=== PATIENT | female | born 1970 | race African-American/Black ===

== ENCOUNTER 2017-11-06 22:59 | Observation (INO) | payer OTHER ==
[~2017-11-06] VITALS: Ht 167.6 cm; Wt 75.0 kg
[2017-11-06 23:07] VITALS: BP 213/112; PULSE 86; RESP 18; TEMP 98.5; O2SAT 92
[2017-11-06] MEDS ORDERED: SODIUM CHLORIDE 0.9% FLUSH 10 ML FLUSH IVF PRN (23:15)
[2017-11-06 23:41] VITALS: BP 189/119; PULSE 80; RESP 18; O2SAT 95
[2017-11-07] VITALS (19 sets, daily range): BP systolic 111–198; BP diastolic 73–125; PULSE 61–80; RESP 16–20; TEMP 97.9–98.9; O2SAT 93–99
[2017-11-07] MEDS ORDERED: hydrALAZINE HCL 20 MG/ML VIAL IV PUSH ONE
[2017-11-07] MEDS ORDERED: PROCHLORPERAZINE INJ 10 MG/2 ML VIAL IVP ONE
--- NOTE | 2017-11-07 00:10 | RADRPT ---
EXAM DATE: 11/07/2017 12:05 AM EDT AGE/SEX: 47 years / Female INDICATIONS: Hypertensive headache. CLINICAL DATA: This is the patient's initial encounter. Patient reports that signs and symptoms have been present for 1 day and indicates a pain score of 10/10. MEDICAL/SURGICAL HISTORY: Hypertension. Multiple sclerosis. Cholecystectomy. RADIATION DOSE: 66.34 CTDI (mGy) COMPARISON: No prior exams available for comparison. TECHNIQUE: CT of the head without contrast. Using automated exposure control and adjustment of the mA and/or kV according to patient size, radiation dose was kept as low as reasonably achievable to ob tain optimal diagnostic quality images. FINDINGS: Cerebrum: The ventricles are normal for age. No evidence of midline shift, mass lesion, hemorrhage or acute infarction. No extraaxial fluid collections are seen. Posterior Fossa: The cerebellum and brainstem are intact. The 4th ventricle is midline. The cerebe llopontine angle is unremarkable. Extracranial: The visualized portion of the orbits is intact. Skull: The calvaria is intact. No evidence of skull fracture. CONCLUSION: 1. Negative CT Head non contrast. Electronically signed by: Chris Lopez MD 11/07/2017 12:09 AM EDT
[2017-11-07] MEDS ORDERED: LABETALOL HCL 100 MG/20 ML VIAL IV PUSH ONE (00:15)
[2017-11-07 00:32] LABS: AUTOMATED NEUTROPHIL # 3.4 TH/MM3 (1.8-7.7); BASOPHIL # 0.1 TH/MM3 (0-0.2); EOSINOPHIL # 0.1 TH/MM3 (0-0.4); EOSINOPHIL % 1.5 % (0.0-4.0); HEMATOCRIT 48.1 % (35.0-46.0); HEMOGLOBIN 16.5 GM/DL (11.6-15.3); LYMPH % 44.3 % (9.0-44.0); LYMPHOCYTE # 3.2 TH/MM3 (1.0-4.8); MEAN CELL VOLUME 98.2 FL (80.0-100.0); MEAN CORPUSCULAR HEMOGLOBIN 33.7 PG (27.0-34.0); MEAN CORPUSCULAR HGB CONC 34.3 % (32.0-36.0); MONO % 6.8 % (0.0-8.0); MONOCYTE # 0.5 TH/MM3 (0-0.9); NEUT % 46.4 % (16.0-70.0); PLATELET COUNT 277 TH/MM3 (150-450); RED CELL DISTRIBUTION WIDTH 13.6 % (11.6-17.2); WHITE BLOOD COUNT 7.2 TH/MM3 (4.0-11.0)
[2017-11-07 00:43] LABS: PROTHROMBIN TIME - PATIENT 10.4 SEC (9.8-11.6)
[2017-11-07 00:47] LABS: D-DIMER 0.25 MG/L FEU (0.00-0.50)
[2017-11-07 00:50] LABS: ALBUMIN 3.5 GM/DL (3.4-5.0); ALT (GPT) 12 U/L (10-53); AST (GOT) 14 U/L (15-37); BICARBONATE 26.9 MEQ/L (21.0-32.0); BLOOD UREA NITROGEN 6 MG/DL (7-18); CALCIUM 9.1 MG/DL (8.5-10.1); CHLORIDE 105 MEQ/L (98-107); CREATININE 0.76 MG/DL (0.50-1.00); GLOMERULAR FILTRATION RATE 82 ML/MIN (>89); GLUCOSE,RANDOM 83 MG/DL (74-106); SODIUM (NA) 141 MEQ/L (136-145)
[2017-11-07 00:52] LABS: ALKALINE PHOSPHATASE 94 U/L (45-117); TOTAL BILIRUBIN ADULT 0.2 MG/DL (0.2-1.0); TOTAL PROTEIN 7.6 GM/DL (6.4-8.2); TROPONIN I LESS THAN 0.02 NG/ML (0.02-0.05)
--- NOTE | 2017-11-07 01:05 | RADRPT ---
EXAM DATE: 11/07/2017 12:58 AM EDT AGE/SEX: 47 years / Female INDICATIONS: Hypertensive episode with headache. CLINICAL DATA: This is the patient's initial encounter. Patient reports that signs and symptoms have been present for 1 day and indicates a pain score of 1/10. MEDICAL/SURGICAL HISTORY: Hypertension. Multiple sclerosis. Cholecystectomy. COMPARISON: No prior exams available for comparison. FINDINGS: A single AP view of the chest demonstrates the lungs to be symmetrically aerated without evidence of mass, infiltrate or effusion except for partial airspace disease in the right middle lobe. The cardi omediastinal contours are unremarkable. Osseous structures are intact. CONCLUSION: Negative examination except for questionable airspace disease in the right middle lobe. Electronically signed by: Chris Lopez MD 11/07/2017 1:04 AM EDT
[2017-11-07] MEDS ORDERED: ASPIRIN 325 MG TAB PO ONE (01:15)
--- NOTE | 2017-11-07 01:16 | PD ---
HPI Chief Complaint: Chest Pain Time Seen by Provider: 23:33 Travel History International Travel<30 days: No Contact w/Intl Traveler<30days: No Traveled to known affect area: No History of Present Illness HPI Patient is a 47-year-old female who presents the emergency room with multiple complaints. Patient reports that she has been having chest pain which has been ongoing for the past few days. Patient reports that she feels a "pressure" across her chest, reports that the chest pain does radiate down her left arm. Patient reports that nothing makes chest pain better or worse, she does have associated shortness of breath with chest pain. Reports that she always has shortness of breath. Reports that she has history of hypertension and is supposed to be taking lisinopril - she hasn't taken any of her meds in 4 months as she recently moved to this area from [place] and does not have a pcp. Patient also reports that since this morning, she has been having a frontal pressure to her head. Patient reports that she feels as if she is having a migraine headache as she has had migraines in the past. Reports history of similar headaches in the past. PFSH Past Medical History Arthritis: Yes Diminished Hearing: No Hypertension: Yes Medical other: Yes (Fibromyalgia, spinal bifida) Musculoskeletal: Yes (MS) Tetanus Vaccination: Unknown Influenza Vaccination: No ?: Not LMP: menapause Past Surgical History Cholecystectomy: Yes Eye Surgery: Yes (to remove glass ) Social History Alcohol Use: No Tobacco Use: Yes Substance Use: No Allergies-Medications (Allergen,Severity, Reaction): Coded Allergies: No Known Allergies (Unverified , 11/06/17) Reported Meds & Prescriptions Reported Meds & Active Scripts Active No Active Prescriptions or Reported Medications Review of Systems General / Constitutional: No: Fever Eyes: No: Visual changes HENT: Positive: Headaches, No: Neck Pain Cardiovascular: Positive: Chest Pain or Discomfort, No: Palpitations, Irregular Rhythm, Tachycardia Respiratory: Positive: Shortness of Breath Gastrointestinal: No: Abdominal Pain Genitourinary: No: Dysuria Musculoskeletal: No: Pain Skin: No Rash Neurologic: Positive: Headache, No: Weakness, Dizziness Psychiatric: No: Depression Endocrine: No: Polydipsia Hematologic/Lymphatic: No: Easy Bruising Physical Exam Narrative GENERAL: Moderate distress SKIN: Focused skin assessment warm/dry. HEAD: Atraumatic. Normocephalic. EYES: Pupils equal and round. No scleral icterus. No injection or drainage. ENT: No nasal bleeding or discharge. Mucous membranes pink and moist. NECK: Trachea midline. No JVD. CARDIOVASCULAR: Regular rate and rhythm. No murmur appreciated. RESPIRATORY: No accessory muscle use. Clear to auscultation. Breath sounds equal bilaterally. GASTROINTESTINAL: Abdomen soft, non-tender, nondistended. Hepatic and splenic margins not palpable. MUSCULOSKELETAL: No obvious deformities. No clubbing. No cyanosis. No edema. NEUROLOGICAL: Awake and alert. No obvious cranial nerve deficits. Motor grossly within normal limits. Normal speech. CN 2-12 grossly intact with no neurovascular deficits PSYCHIATRIC: Appropriate mood and affect; insight and judgment normal. Data Data Last Documented VS Vital Signs Date Time Temp Pulse Resp B/P (MAP) Pulse Ox O2 Delivery O2 Flow Rate FiO2 11/07/17 01:08 73 18 162/99 (120) 99 Nasal Cannula 2.00 11/06/17 23:07 98.5 Orders Orders Electrocardiogram (11/06/17 23:14) B-Type Natriuretic Peptide (11/06/17 23:14) Ckmb (Isoenzyme) Profile (11/06/17 23:14) Complete Blood Count With Diff (11/06/17 23:14) Comprehensive Metabolic Panel (11/06/17 23:14) Magnesium (Mg) (11/06/17 23:14) Prothrombin Time / Inr (Pt) (11/06/17 23:14) Act Partial Throm Time (Ptt) (11/06/17 23:14) Troponin I (11/06/17 23:14) Lipase (11/06/17 23:14) Ecg Monitoring (11/06/17 23:14) Iv Access Insert/Monitor (11/06/17 23:14) Oximetry (11/06/17 23:14) Sodium Chloride 0.9% Flush (Ns Flush) (11/06/17 23:15) Ct Brain W/O Iv Contrast(Rout) (11/06/17 23:48) Hydralazine Inj (Apresoline Inj) (11/07/17 00:00) Prochlorperazine Inj (Compazine Inj) (11/07/17 00:00) Labetalol Inj (Trandate Inj) (11/07/17 00:15) D-Dimer (11/06/17 23:14) Chest, Single Ap (11/07/17 ) Aspirin (Aspirin) (11/07/17 01:15) Lisinopril (Prinivil) (11/07/17 09:00) Labs Laboratory Tests Test 11/06/17 23:39 White Blood Count 7.2 TH/MM3 Red Blood Count 4.90 MIL/MM3 Hemoglobin 16.5 GM/DL Hematocrit 48.1 % Mean Corpuscular Volume 98.2 FL Mean Corpuscular Hemoglobin 33.7 PG Mean Corpuscular Hemoglobin Concent 34.3 % Red Cell Distribution Width 13.6 % Platelet Count 277 TH/MM3 Mean Platelet Volume 8.0 FL Neutrophils (%) (Auto) 46.4 % Lymphocytes (%) (Auto) 44.3 % Monocytes (%) (Auto) 6.8 % Eosinophils (%) (Auto) 1.5 % Basophils (%) (Auto) 1.0 % Neutrophils # (Auto) 3.4 TH/MM3 Lymphocytes # (Auto) 3.2 TH/MM3 Monocytes # (Auto) 0.5 TH/MM3 Eosinophils # (Auto) 0.1 TH/MM3 Basophils # (Auto) 0.1 TH/MM3 CBC Comment DIFF FINAL Differential Comment Prothrombin Time 10.4 SEC Prothromb Time International Ratio 1.0 RATIO Activated Partial Thromboplast Time 28.8 SEC D-Dimer Quantitative (PE/DVT) 0.25 MG/L FEU Blood Urea Nitrogen 6 MG/DL Creatinine 0.76 MG/DL Random Glucose 83 MG/DL Total Protein 7.6 GM/DL Albumin 3.5 GM/DL Calcium Level 9.1 MG/DL Magnesium Level 2.0 MG/DL Alkaline Phosphatase 94 U/L Aspartate Amino Transf (AST/SGOT) 14 U/L Alanine Aminotransferase (ALT/SGPT) 12 U/L Total Bilirubin 0.2 MG/DL Sodium Level 141 MEQ/L Potassium Level 3.6 MEQ/L Chloride Level 105 MEQ/L Carbon Dioxide Level 26.9 MEQ/L Anion Gap 9 MEQ/L Estimat Glomerular Filtration Rate 82 ML/MIN Total Creatine Kinase 58 U/L Troponin I LESS THAN 0.02 NG/ML B-Type Natriuretic Peptide 14 PG/ML Lipase 102 U/L MDM Medical Decision Making Medical Screen Exam Complete: Yes Emergency Medical Condition: Yes Medical Record Reviewed: Yes Interpretation(s) Vital Signs Date Time Temp Pulse Resp B/P (MAP) Pulse Ox O2 Delivery O2 Flow Rate FiO2 11/07/17 00:56 80 18 165/100 (121) 97 Nasal Cannula 2.00 11/07/17 00:22 78 20 183/125 (144) 99 Nasal Cannula 2.00 11/07/17 00:15 75 20 198/121 (146) 99 Nasal Cannula 2.00 11/06/17 23:41 80 18 189/119 (142) 95 Nasal Cannula 2.00 11/06/17 23:07 98.5 86 18 213/112 (145) 92 Differential Diagnosis ACS, arrhythmia, PE, pneumothorax, migraine, hypertensive urgency, hypertensive emergency Narrative Course During the course of the patients emergency department visit, the patients history, examination, and differential diagnosis were reviewed with the patient. The patient was placed on a monitoring coordinator with oximetry and frequent blood pressure monitoring. The patient had an IV access obtained and blood work sent for analysis. The patient was initially provided IV labelolol as initial bp was 213/112. BP after labetolol was 162/99 The patients laboratory studies were reviewed and remarkable for CBC & BMP Diagram 11/06/17 23:39 Total Protein 7.6, Albumin 3.5, Calcium Level 9.1, Magnesium Level 2.0, Alkaline Phosphatase 94, Aspartate Amino Transf (AST/SGOT) 14 L, Alanine Aminotransferase (ALT/SGPT) 12, Total Bilirubin 0.2 trop 0.02, d.dimer 0.25 Radiology studies were reviewed and remarkable for Last Impressions Chest X-Ray 11/07/17 0000 Impressions: CONCLUSION: Negative examination except for questionable airspace disease in the right midd le lobe. Head CT 11/06/17 3658 Signed Impressions: CONCLUSION: 1. Negative CT Head non contrast. Patient feeling much better at this time. Patient will require admission to the hospital for hypertensive urgency as well as for chest pain observation. Case reviewed with Dr. Knapp, request that patient be restarted on her lisinopril 40 mg, request the patient be admitted to the chest pain unit as her blood pressure is controlled at this time. Diagnosis Primary Impression: Hypertensive urgency Additional Impression: Chest pain Admitting Information Admitting Physician Requests: Observation Scripts No Active Prescriptions or Reported Meds Johanny Flores DO Nov 07, 2017 01:16
[2017-11-07] MEDS ORDERED: IOHEXOL 350 MG/ML 50 ML BTL (for Cath Lab) OTHER ONE (01:37)
[2017-11-07] MEDS ORDERED: LISINOPRIL 20 MG TAB PO SCH ×2 (02:00→09:00)
[2017-11-07 03:43] LABS: TROPONIN I LESS THAN 0.02 NG/ML (0.02-0.05)
[2017-11-07 05:35] LABS: TROPONIN I LESS THAN 0.02 NG/ML (0.02-0.05)
[2017-11-07] MEDS ORDERED: RESP: ALBUTEROL 2.5 MG/IPRATROPIUM 0.5 MG NEB (SCH) INH ONE (08:45)
[2017-11-07] MEDS ORDERED: cloNIDine HCL 0.1 MG TAB PO PRN (08:45)
[2017-11-07] MEDS ORDERED: RESP: ALBUTEROL 2.5 MG/IPRATROPIUM 0.5 MG NEB (PRN) INH (08:45)
--- NOTE | 2017-11-07 08:50 | HHI.HP ---
HPI Primary Care Physician Unknown Chief Complaint Chest pain and shortness of breath History of Present Illness This is a 47-year-old female with history of hypertension, tobacco abuse, MS, fibromyalgia, and spina bifida that presents to ED with complaint of shortness of breath and chest discomfort this been constantly present for 2 days. First began waking her from her sleep. Initially was a discomfort described as something sitting on her and then turned to a squeezing discomfort. Really found nothing to worsen the discomfort. States she felt better after being given medication in the ED for blood pressure. Patient states that she has been prescribed lisinopril for years but ran out of medicine 4 months ago about the same time that she moved to this area from [place] has not found a local PCP. States the only other medication that she should be taking his pain medication that she takes for her MS and fibromyalgia. Currently denies chest discomfort. States her breathing is also improved. Review of Systems General: Patient denies fevers, chills, and recent travel. HEENT: Patient denies headache, sore throat, difficulty swallowing. Cardiovascular: Has the chest discomfort as mentioned above. Denies sensation of heart beating rapidly or irregularly. No syncope. Denies diaphoresis. Respiratory: She was short of breath. Denies inspirational chest discomfort. Denies coughing wheezing or hemoptysis. GI: Patient denies nausea, vomiting, diarrhea, abdominal pain, bloody stools. Musculoskeletal: Patient denies joint pain or edema. Denies calf pain or edema. Neurovascular: Patient denies numbness, tingling, weakness in extremities. Denies headache. Endocrine: Denies polyuria and polydipsia. Hematologic: Denies easy bruising. Skin: Denies rash or itching. Past Family Social History Allergies: Coded Allergies: No Known Allergies (Unverified , 11/06/17) Past Medical History Hypertension. States she also has history of MS, spina bifida, and fibromyalgia. Denies hyperlipidemia, diabetes, and known CAD. History of tobacco abuse. Past Surgical History Cholecystectomy Reported Medications Reported Meds & Active Scripts Active No Active Prescriptions or Reported Medications Active Ordered Medications Current Medications Medications (Trade) Dose Ordered Sig/Rosamaria Route Start Time Stop Time Status Last Admin (NS Flush) 2 ml UNSCH PRN IVF 11/06/17 23:15 (Prinivil) 40 mg DAILY PO 11/07/17 09:00 11/07/17 08:01 (Prinivil) 40 mg ONCE PO 11/07/17 02:00 (Duoneb Neb) 1 ampule Q4HR NEB PRN INH 11/07/17 08:45 (Duoneb Neb) 1 ampule STAT ONCE INH 11/07/17 08:45 11/07/17 08:46 (Catapres) 0.1 mg Q4H PRN PO 11/07/17 08:45 Family History States that her mother had an ME in her 40s and her sister has a pacemaker. Social History Smokes one half pack of cigarettes daily for 40 years. Denies alcohol. Smokes marijuana. She is . Physical Exam Vital Signs Vital Signs Date Time Temp Pulse Resp B/P (MAP) Pulse Ox O2 Delivery O2 Flow Rate FiO2 11/07/17 08:13 98.9 72 18 175/110 (131) 95 11/07/17 03:16 68 11/07/17 02:32 97.9 66 16 158/99 (118) 95 11/07/17 02:20 11/07/17 01:56 79 20 158/93 (114) 99 Nasal Cannula 2.00 11/07/17 01:08 73 18 162/99 (120) 99 Nasal Cannula 2.00 11/07/17 00:56 80 18 165/100 (121) 97 Nasal Cannula 2.00 11/07/17 00:22 78 20 183/125 (144) 99 Nasal Cannula 2.00 11/07/17 00:15 75 20 198/121 (146) 99 Nasal Cannula 2.00 11/06/17 23:41 80 18 189/119 (142) 95 Nasal Cannula 2.00 11/06/17 23:07 98.5 86 18 213/112 (145) 92 Physical Exam GENERAL: This is a well-nourished, well-developed patient, in no apparent distress. Patient speaks in clear complete sentences. Patient is pleasant. HEENT: Head is atraumatic and normocephalic. Neck is supple without lymphadenopathy and trachea is midline. No JVD or carotid bruits. CARDIOVASCULAR: Regular rate and rhythm without murmurs, gallops, or rubs. RESPIRATORY: Clear to auscultation. Breath sounds equal bilaterally. No wheezes , rales, or rhonchi. Chest wall is tender. No use of accessory muscles. GASTROINTESTINAL: Abdomen is nontender, nondistended. Abdomen soft. No obvious pulsatile mass or bruit. No CVA tenderness. Strong femoral pulses bilaterally. Normal bowel sounds in all quadrants. MUSCULOSKELETAL: Patient is moving upper and lower extremities freely. No calf tenderness or edema, no Homans sign. Strong pulses in upper and lower extremities. NEUROLOGICAL: Patient is alert and oriented. Cranial nerves 2-12 are grossly intact. No focal deficits and speech is clear. SKIN: No rash and turgor is normal. Laboratory Laboratory Tests Test 11/06/17 23:39 11/07/17 02:50 11/07/17 05:00 White Blood Count 7.2 Red Blood Count 4.90 Hemoglobin 16.5 Hematocrit 48.1 Mean Corpuscular Volume 98.2 Mean Corpuscular Hemoglobin 33.7 Mean Corpuscular Hemoglobin Concent 34.3 Red Cell Distribution Width 13.6 Platelet Count 277 Mean Platelet Volume 8.0 Neutrophils (%) (Auto) 46.4 Lymphocytes (%) (Auto) 44.3 Monocytes (%) (Auto) 6.8 Eosinophils (%) (Auto) 1.5 Basophils (%) (Auto) 1.0 Neutrophils # (Auto) 3.4 Lymphocytes # (Auto) 3.2 Monocytes # (Auto) 0.5 Eosinophils # (Auto) 0.1 Basophils # (Auto) 0.1 CBC Comment DIFF FINAL Differential Comment Prothrombin Time 10.4 Prothromb Time International Ratio 1.0 Activated Partial Thromboplast Time 28.8 D-Dimer Quantitative (PE/DVT) 0.25 Blood Urea Nitrogen 6 Creatinine 0.76 Random Glucose 83 Total Protein 7.6 Albumin 3.5 Calcium Level 9.1 Magnesium Level 2.0 Alkaline Phosphatase 94 Aspartate Amino Transf (AST/SGOT) 14 Alanine Aminotransferase (ALT/SGPT) 12 Total Bilirubin 0.2 Sodium Level 141 Potassium Level 3.6 Chloride Level 105 Carbon Dioxide Level 26.9 Anion Gap 9 Estimat Glomerular Filtration Rate 82 Total Creatine Kinase 58 62 74 Troponin I LESS THAN 0.02 LESS THAN 0.02 LESS THAN 0.02 B-Type Natriuretic Peptide 14 Lipase 102 Result Diagram: 11/06/17 2339 11/06/17 2339 Imaging Last 48 hours Impressions Chest X-Ray 11/07/17 0000 Signed Impressions: CONCLUSION: Negative examination except for questionable airspace disease in the right midd le lobe. Head CT 11/06/17 8524 Signed Impressions: CONCLUSION: 1. Negative CT Head non contrast. Course EKGs are sinus rhythm without significant ST segment depressions or elevations. Caprini VTE Risk Assessment Caprini VTE Risk Assessment: No/Low Risk (score <= 1) Caprini Risk Assessment Model Point Value = 1 Point Value = 2 Point Value = 3 Point Value = 5 Age 41-60 Minor surgery BMI > 25 kg/m2 Swollen legs Varicose veins or History of unexplained or recurrent spontaneous Oral contraceptives or hormone replacement Sepsis (< 1 month) Serious lung disease, including pneumonia (< 1 month) Abnormal pulmonary function Acute myocardial infarction Congestive heart failure (< 1 month) History of inflammatory bowel disease Medical patient at bed rest Age 61-74 Arthroscopic surgery Major open surgery (> 45 min) Laparoscopic surgery (> 45 min) Malignancy Confined to bed (> 72 hours) Immobilizing plaster cast Central venous access Age >= 75 History of VTE Family history of VTE Factor V Leiden Prothrombin [id number] Lupus anticoagulant Anticardiolipin antibodies Elevated serum homocysteine Heparin-induced thrombocytopenia Other congenital or acquired thrombophilia Stroke (< 1 month) Elective arthroplasty Hip, pelvis, or leg fracture Acute spinal cord injury (< 1 month) Prophylaxis Regimen Total Risk Factor Score Risk Level Prophylaxis Regimen 0-1 Low Early ambulation 2 Moderate Order ONE of the following: *Sequential Compression Device (SCD) *Heparin 5000 units SQ BID 3-4 Higher Order ONE of the following medications: *Heparin 5000 units SQ TID *Enoxaparin/Lovenox 40 mg SQ daily (WT < 150 kg, CrCl > 30 mL/min) *Enoxaparin/Lovenox 30 mg SQ daily (WT < 150 kg, CrCl > 10-29 mL/min) *Enoxaparin/Lovenox 30 mg SQ BID (WT < 150 kg, CrCl > 30 mL/min) AND/OR *Sequential Compression Device (SCD) 5 or more Highest Order ONE of the following medications: *Heparin 5000 units SQ TID (Preferred with Epidurals) *Enoxaparin/Lovenox 40 mg SQ daily (WT < 150 kg, CrCl > 30 mL/min) *Enoxaparin/Lovenox 30 mg SQ daily (WT < 150 kg, CrCl > 10-29 mL/min) *Enoxaparin/Lovenox 30 mg SQ BID (WT < 150 kg, CrCl > 30 mL/min) AND *Sequential Compression Device (SCD) Assessment and Plan Assessment and Plan * Chest pain: Symptoms are atypical as she has had them for 2 days constant and reproducible when palpating the chest wall. However she does have risk factors for heart disease. She will be seen by Dr. Leigh of cardiology in the chest pain center. She will undergo a Lexiscan. She will be discharged home if her stress test is nonischemic with instructions to follow-up with PCP. * Hypertension: Patient states she is out of her lisinopril which she was taking 40 mg daily. This will be restarted. * Tobacco abuse: Patient counseled on importance of smoking cessation. Patient is stable at this time. She is agreeable to this plan. Qasim Shaikh Nov 07, 2017 08:50
[2017-11-07] MEDS ORDERED: REGADENOSON INJ 0.4 MG/5 ML SYR ONE (10:32)
--- NOTE | 2017-11-07 12:03 | PD.CARD.PN ---
Subjective Subjective Remarks 47-year-old lady who reports a complex medical history dating back to her youth but presenting today due to chest pain which was described as a squeezing pain in her left chest area and is squeezing of her heart that seemed to radiate into her left arm. Initially this was severe and has been protracted but is down now to 1 out of 10. She also reports shortness of breath but this is not an unusual occurrence her history however is pertinent apparently she has been diagnosed with spina bifida multiple sclerosis fibromyalgia diffuse degenerative joint disease and hypertension. She has sought medical care in several different states including [place], [place], in [place]. She has been under treatment for hypertension but apparently this has not been well controlled. She and her recently moved from [place] and she has not reestablished with a physician. As result she has been off her medication and her blood pressures been significantly increased. Patient was discussed with the physician human relations professor and will be evaluated using chest pain center protocol including a nuclear scan. She obviously has additional significant problems but these will require outpatient long-term follow-up with a primary care physician and possible neurology. She is insured to her 's insurance and indicates that she will attempt to establish with a physician. Objective Medications Current Medications Medications (Trade) Dose Ordered Sig/Rosamaria Route Start Time Stop Time Status Last Admin (NS Flush) 2 ml UNSCH PRN IVF 11/06/17 23:15 (Prinivil) 40 mg DAILY PO 11/07/17 09:00 11/07/17 08:01 (Prinivil) 40 mg ONCE PO 11/07/17 02:00 (Duoneb Neb) 1 ampule Q4HR NEB PRN INH 11/07/17 08:45 (Catapres) 0.1 mg Q4H PRN PO 11/07/17 08:45 Vital Signs / I&O Vital Signs Date Time Temp Pulse Resp B/P (MAP) Pulse Ox O2 Delivery O2 Flow Rate FiO2 11/07/17 09:58 65 18 159/109 (126) 93 11/07/17 09:16 74 11/07/17 08:56 96 Nasal Cannula 2.00 11/07/17 08:13 98.9 72 18 175/110 (131) 95 11/07/17 03:16 68 11/07/17 02:32 97.9 66 16 158/99 (118) 95 11/07/17 02:20 11/07/17 01:56 79 20 158/93 (114) 99 Nasal Cannula 2.00 11/07/17 01:08 73 18 162/99 (120) 99 Nasal Cannula 2.00 11/07/17 00:56 80 18 165/100 (121) 97 Nasal Cannula 2.00 11/07/17 00:22 78 20 183/125 (144) 99 Nasal Cannula 2.00 11/07/17 00:15 75 20 198/121 (146) 99 Nasal Cannula 2.00 11/06/17 23:41 80 18 189/119 (142) 95 Nasal Cannula 2.00 11/06/17 23:07 98.5 86 18 213/112 (145) 92 Physical Exam Patient is sitting in the bed and demonstrates a diffuse fine tremor. Head multi colored braid in hair but otherwise unremarkable Eyes are very sensitive to light. PERRLA EOMI Mouth mucous membranes moist and well papillated no lesions Neck supple no JVD masses nodes or bruits Chest diminished breath sounds but no rales wheezes or rhonchi Cardiovascular regular rhythm with no gallop rub or murmur Extremities reveal the left lower extremity to be somewhat atrophic compared to the right. There is no clubbing cyanosis or edema Neurologic is deferred due to her reported complex problems of multiple sclerosis fibromyalgia atrophy Laboratory Laboratory Tests Test 11/06/17 23:39 11/07/17 02:50 11/07/17 05:00 White Blood Count 7.2 TH/MM3 Red Blood Count 4.90 MIL/MM3 Hemoglobin 16.5 GM/DL Hematocrit 48.1 % Mean Corpuscular Volume 98.2 FL Mean Corpuscular Hemoglobin 33.7 PG Mean Corpuscular Hemoglobin Concent 34.3 % Red Cell Distribution Width 13.6 % Platelet Count 277 TH/MM3 Mean Platelet Volume 8.0 FL Neutrophils (%) (Auto) 46.4 % Lymphocytes (%) (Auto) 44.3 % Monocytes (%) (Auto) 6.8 % Eosinophils (%) (Auto) 1.5 % Basophils (%) (Auto) 1.0 % Neutrophils # (Auto) 3.4 TH/MM3 Lymphocytes # (Auto) 3.2 TH/MM3 Monocytes # (Auto) 0.5 TH/MM3 Eosinophils # (Auto) 0.1 TH/MM3 Basophils # (Auto) 0.1 TH/MM3 CBC Comment DIFF FINAL Differential Comment Prothrombin Time 10.4 SEC Prothromb Time International Ratio 1.0 RATIO Activated Partial Thromboplast Time 28.8 SEC D-Dimer Quantitative (PE/DVT) 0.25 MG/L FEU Blood Urea Nitrogen 6 MG/DL Creatinine 0.76 MG/DL Random Glucose 83 MG/DL Total Protein 7.6 GM/DL Albumin 3.5 GM/DL Calcium Level 9.1 MG/DL Magnesium Level 2.0 MG/DL Alkaline Phosphatase 94 U/L Aspartate Amino Transf (AST/SGOT) 14 U/L Alanine Aminotransferase (ALT/SGPT) 12 U/L Total Bilirubin 0.2 MG/DL Sodium Level 141 MEQ/L Potassium Level 3.6 MEQ/L Chloride Level 105 MEQ/L Carbon Dioxide Level 26.9 MEQ/L Anion Gap 9 MEQ/L Estimat Glomerular Filtration Rate 82 ML/MIN Total Creatine Kinase 58 U/L 62 U/L 74 U/L Troponin I LESS THAN 0.02 NG/ML LESS THAN 0.02 NG/ML LESS THAN 0.02 NG/ML B-Type Natriuretic Peptide 14 PG/ML Lipase 102 U/L Imaging Last 24 hours Impressions Chest X-Ray 11/07/17 0000 Signed Impressions: CONCLUSION: Negative examination except for questionable airspace disease in the right midd le lobe. Head CT 11/06/17 2348 Signed Impressions: CONCLUSION: 1. Negative CT Head non contrast. Assessment and Plan Assessment and Plan The patient was discussed and immediate issues of chest pain will be evaluated with a full protocol. If she is negative as anticipated she will be discharged with refills on her hypertensive medications to establish follow-up with primary care physician and a neurologist in this area. Discussed Condition With Discussed with patient Karl Leigh MD Nov 07, 2017 12:03
--- NOTE | 2017-11-07 12:25 | RADRPT ---
EXAM DATE: 11/07/2017 11:46 AM EDT AGE/SEX: 47 years / Female INDICATIONS:Angina. . Mid chest pain with shortness of breath for two days. CLINICAL DATA: This is the patient's initial encounter. Patient reports that signs and symptoms have been present for 2 days and indicates a pain score of 4/10. MEDICAL/SURGICAL HISTORY: Multiple sclerosis. Hypertension. Cholecystectomy. COMPARISON: No prior exams available for comparison. No external comparison. DOSE: 8.7 mCi Tc 99m Myoview at rest 25.5 mCi [id number] at stress 0.4 mg Lexiscan STRESS SYMPTOMS: Chest pain with shortness of breath. EJECTION FRACTION: 66 % TECHNIQUE: The patient underwent pharmacologic stress with infusion of prescribed dose. Continuous ECG tracing was monitored during stress. Gated SPECT imaging was performed after stress and conventi onal SPECT imaging was performed at rest. The examination was performed on a SPECT/CT scanner, both attenuation and non-corrected datasets were reviewed. FINDINGS: Distribution: The maximum perfused segment at stress is in the septal wall. Perfusion Study: The pattern of perfusion at stress demonstrates a small reversible defect in the i nferolateral wall. Gated Study: There are intact wall motion and wall thickening without hypokinetic or dyskinetic segm ents. The ejection fraction is calculated at 66%. RISK CATEGORY: Intermediate (1-3 % Annual Mortality Rate) CONCLUSION: 1. There is a small area of reversibility in the inferolateral wall of the left ventricle. This coul d represent a focal area of ischemia. Normal wall motion. Electronically signed by: Jimmie Law MD 11/07/2017 12:24 PM EDT
[2017-11-07] MEDS: METOPROLOL TARTRATE 25 MG TAB PO SCH ×2 (13:05→22:17)
[2017-11-07] MEDS: amLODIPine BESYLATE 5 MG TAB PO SCH (13:06)
--- NOTE | 2017-11-07 13:07 | TR ---
Date Performed: 11/07/2017 Time Performed: 10:47:27 DOCTOR: Karl Leigh DRUG LIST: CLINICAL HISTORY: ANGINA REASON FOR TEST: Angina REASON FOR ENDING: OBSERVATION: CONCLUSION: Lexiscan stress test was performed under standard four minute protocol. Radionuclide was injected one minute prior to ending the test. No electrocardiographic abormalities were present to suggest ischemia. Nuclear imaging and interpretation are pending. COMMENTS:
--- NOTE | 2017-11-07 13:09 | EKG ---
Date Performed: 11/07/2017 Time Performed: 04:42:15 PTAGE: 47 years EKG: Sinus rhythm LEFT ATRIAL ENLARGEMENT POSSIBLE RIGHT VENTRICULAR CONDUCTION DELAY SEPTAL MYOCARDIAL INFARCTION ABN ORMAL ECG No change PREVIOUS TRACING : 11/07/2017 02.41 DOCTOR: Karl Leigh Interpretating Date/Time 11/07/2017 13:07:54
--- NOTE | 2017-11-07 13:10 | EKG ---
Date Performed: 11/07/2017 Time Performed: 02:41:53 PTAGE: 47 years EKG: Sinus rhythm INCOMPLETE RIGHT BUNDLE BRANCH BLOCK BORDERLINE ECG No significant change PREVIOUS TRACING : 11/06/2017 22.34 DOCTOR: Karl eLigh Interpretating Date/Time 11/07/2017 13:08:18
--- NOTE | 2017-11-07 13:11 | EKG ---
Date Performed: 11/06/2017 Time Performed: 22:34:16 PTAGE: 47 years EKG: Sinus rhythm LEFT ATRIAL ENLARGEMENT POSSIBLE RIGHT VENTRICULAR CONDUCTION DELAY ABNORMAL ECG NO PREVIOUS TRACING DOCTOR: Karl Leigh Interpretating Date/Time 11/07/2017 13:09:06
[2017-11-07] MEDS ORDERED: NITROGLYCERIN 2% OINT 1 GM PACKET TOPICAL SCH (14:00)
[2017-11-07] MEDS: NITROGLYCERIN 2% OINT 1 GM PACKET TOPICAL SCH (18:00)
[2017-11-08 04:00] VITALS: BP 127/75; PULSE 57; RESP 18; TEMP 98.7; O2SAT 93
[2017-11-08] MEDS: NITROGLYCERIN 2% OINT 1 GM PACKET TOPICAL SCH ×2 (06:00)
[2017-11-08 07:24] VITALS: O2SAT 94
--- NOTE | 2017-11-08 07:40 | PD.CONS ---
HPI Consult Requested By Primary Care Physician Unknown History of Present Illness 47-year-old female with past medical history of HTN, tobacco use, MS, MVP who presented for chest pain. The patient states that she began having heavy squeezing chest discomfort, went to sleep, was worse whenever she woke up so she came to the ED. She states this is the third episode like this that she has had this year. She states the first episode occurred whenever she was exerting herself raking the yard. She has associated shortness of breath. She reports her mom had a stroke at 37 and NE at age 41. She states her sister just recently had a large heart attack and heart catheterization so she is familiar with that. She does smoke. She was admitted to the chest pain center and was ruled out for ACS per protocol with unremarkable serial cardiac enzymes and EKGs. Nuclear stress test done which showed small area reversibility inferior lateral wall of the left ventricle, possibly representing a focal area of ischemia. (Bradley Martínez) Review of Systems Negative except as stated in the HPI (Bradley Martínez) Past Family Social History Allergies: Coded Allergies: No Known Allergies (Unverified , 11/06/17) Past Medical History Hypertension. States she also has history of MS, spina bifida, and fibromyalgia. Past Surgical History Cholecystectomy Reported Medications Reported Meds & Active Scripts Active No Active Prescriptions or Reported Medications Active Ordered Medications Current Medications Medications (Trade) Dose Ordered Sig/Rosamaria Route Start Time Stop Time Status Last Admin (NS Flush) 2 ml UNSCH PRN IVF 11/06/17 23:15 (Prinivil) 40 mg ONCE PO 11/07/17 02:00 (Duoneb Neb) 1 ampule Q4HR NEB PRN INH 11/07/17 08:45 (Catapres) 0.1 mg Q4H PRN PO 11/07/17 08:45 11/07/17 14:27 (Lopressor) 25 mg Q12HR PO 11/07/17 12:45 11/07/17 22:17 (Norvasc) 5 mg DAILY PO 11/07/17 12:45 11/07/17 13:06 (Aspirin) 325 mg DAILY PO 11/08/17 09:00 (Nitroglycerin 2% Oint) 1 inch Q6HR TOPICAL 11/07/17 18:00 (Catapres) 0.1 mg Q6H PRN PO 11/07/17 13:45 Family History Mother NE age 41, CVA age 37. Sister with NE. Social History Smokes one half pack of cigarettes daily for 40 years. Denies alcohol. MJ use. (Bradley Martínez) Physical Exam Vital Signs Vital Signs Date Time Temp Pulse Resp B/P (MAP) Pulse Ox O2 Delivery O2 Flow Rate FiO2 11/08/17 07:24 94 21 11/08/17 04:00 98.7 57 18 127/75 (92) 93 11/07/17 23:35 98.3 73 17 111/73 (86) 94 11/07/17 23:00 72 11/07/17 20:08 96 11/07/17 19:37 98.6 74 17 158/85 (109) 93 11/07/17 15:56 63 11/07/17 15:45 98.1 66 18 135/104 (114) 95 11/07/17 13:53 61 18 186/115 (138) 96 11/07/17 12:14 98.9 70 18 174/108 (130) 93 11/07/17 09:58 65 18 159/109 (126) 93 11/07/17 09:16 74 11/07/17 08:56 96 Nasal Cannula 2.00 11/07/17 08:13 98.9 72 18 175/110 (131) 95 Physical Exam GENERAL: Well-developed well-nourished. In no acute distress. NECK: No carotid bruits. No JVD. CARDIOVASCULAR: Regular rate and rhythm. No murmur appreciated. RESPIRATORY: No accessory muscle use. Clear to auscultation. Breath sounds equal bilaterally. MUSCULOSKELETAL: No clubbing or cyanosis. No edema. NEUROLOGICAL: Awake and alert. Normal speech. Laboratory Laboratory Tests Test 11/08/17 06:01 (Bradley Martínez) Result Diagram: 11/06/17 2339 11/06/17 2339 Imaging Last Impressions Myocardial Perfusion Scan Nuc Med 11/07/17 0000 Signed Impressions: CONCLUSION: 1. There is a small area of reversibility in the inferolateral wall of the lef t ventricle. This could represent a focal area of ischemia. Normal wall motion. Chest X-Ray 11/07/17 0000 Signed Impressions: CONCLUSION: Negative examination except for questionable airspace disease in the right midd le lobe. Head CT 11/06/17 6190 Signed Impressions: CONCLUSION: 1. Negative CT Head non contrast. (Bradley Martínez) Assessment and Plan Assessment and Plan 47-year-old female with past medical history of HTN, tobacco use, MS, MVP who presented for chest pain. The patient states that she began having heavy squeezing chest discomfort, went to sleep, was worse whenever she woke up so she came to the ED. She states this is the third episode like this that she has had this year. She states the first episode occurred whenever she was exerting herself raking the yard. She has associated shortness of breath. She reports her mom had a stroke at 37 and NE at age 41. She states her sister just recently had a large heart attack and heart catheterization so she is familiar with that. She does smoke. She was admitted to the chest pain center and was ruled out for ACS per protocol with unremarkable serial cardiac enzymes and EKGs. Nuclear stress test done which showed small area reversibility inferior lateral wall of the left ventricle, possibly representing a focal area of ischemia. Chest pain: Suggestive symptoms with risk factors including strong family history, uncontrolled hypertension, tobacco use; now with mildly positive nuclear stress test. We will plan for cardiac catheterization today, all questions answered, keep n.p.o. for now. Discussed Condition With Patient, Dr. Gongora (Bradley Martínez) Assessment and Plan Plan for [facility] NPO (Chris Gongora MD) Bradley Martínez Nov 08, 2017 07:40 Chris Gongora MD Nov 08, 2017 10:26
[2017-11-08 07:46] VITALS: BP 169/107; PULSE 75; RESP 16; TEMP 97.8; O2SAT 93
[2017-11-08 08:00] VITALS: PULSE 60
[2017-11-08 08:05] LABS: CHOLESTEROL/ HDL RATIO 4.72 RATIO; HDL CHOLESTEROL 36.6 MG/DL (40.0-60.0)
[2017-11-08] MEDS: METOPROLOL TARTRATE 25 MG TAB PO SCH (08:06)
[2017-11-08] MEDS: amLODIPine BESYLATE 5 MG TAB PO SCH (08:06)
[2017-11-08] MEDS: RESP: ALBUTEROL 2.5 MG/IPRATROPIUM 0.5 MG NEB (SCH) NEB ×2 (08:46→11:33)
--- NOTE | 2017-11-08 08:48 | HHI.PR ---
Subjective Remarks Patient reports feeling much better than when she came in continues to have cough which has been present for approximately 4 -5 months and shortness of breath which appears to be chronic Objective Vitals Vital Signs Date Time Temp Pulse Resp B/P (MAP) Pulse Ox O2 Delivery O2 Flow Rate FiO2 11/08/17 07:46 97.8 75 16 169/107 (127) 93 11/08/17 07:24 94 21 11/08/17 04:00 98.7 57 18 127/75 (92) 93 11/07/17 23:35 98.3 73 17 111/73 (86) 94 11/07/17 23:00 72 11/07/17 20:08 96 11/07/17 19:37 98.6 74 17 158/85 (109) 93 11/07/17 15:56 63 11/07/17 15:45 98.1 66 18 135/104 (114) 95 11/07/17 13:53 61 18 186/115 (138) 96 11/07/17 12:14 98.9 70 18 174/108 (130) 93 11/07/17 09:58 65 18 159/109 (126) 93 11/07/17 09:16 74 11/07/17 08:56 96 Nasal Cannula 2.00 Result Diagram: 11/06/17 2339 11/06/17 2339 Other Results Laboratory Tests Test 11/06/17 23:39 11/07/17 02:50 11/07/17 05:00 11/08/17 06:01 White Blood Count 7.2 TH/MM3 Red Blood Count 4.90 MIL/MM3 Hemoglobin 16.5 GM/DL Hematocrit 48.1 % Mean Corpuscular Volume 98.2 FL Mean Corpuscular Hemoglobin 33.7 PG Mean Corpuscular Hemoglobin Concent 34.3 % Red Cell Distribution Width 13.6 % Platelet Count 277 TH/MM3 Mean Platelet Volume 8.0 FL Neutrophils (%) (Auto) 46.4 % Lymphocytes (%) (Auto) 44.3 % Monocytes (%) (Auto) 6.8 % Eosinophils (%) (Auto) 1.5 % Basophils (%) (Auto) 1.0 % Neutrophils # (Auto) 3.4 TH/MM3 Lymphocytes # (Auto) 3.2 TH/MM3 Monocytes # (Auto) 0.5 TH/MM3 Eosinophils # (Auto) 0.1 TH/MM3 Basophils # (Auto) 0.1 TH/MM3 CBC Comment DIFF FINAL Differential Comment Prothrombin Time 10.4 SEC Prothromb Time International Ratio 1.0 RATIO Activated Partial Thromboplast Time 28.8 SEC D-Dimer Quantitative (PE/DVT) 0.25 MG/L FEU Blood Urea Nitrogen 6 MG/DL Creatinine 0.76 MG/DL Random Glucose 83 MG/DL Total Protein 7.6 GM/DL Albumin 3.5 GM/DL Calcium Level 9.1 MG/DL Magnesium Level 2.0 MG/DL Alkaline Phosphatase 94 U/L Aspartate Amino Transf (AST/SGOT) 14 U/L Alanine Aminotransferase (ALT/SGPT) 12 U/L Total Bilirubin 0.2 MG/DL Sodium Level 141 MEQ/L Potassium Level 3.6 MEQ/L Chloride Level 105 MEQ/L Carbon Dioxide Level 26.9 MEQ/L Anion Gap 9 MEQ/L Estimat Glomerular Filtration Rate 82 ML/MIN Total Creatine Kinase 58 U/L 62 U/L 74 U/L Troponin I LESS THAN 0.02 NG/ML LESS THAN 0.02 NG/ML LESS THAN 0.02 NG/ML B-Type Natriuretic Peptide 14 PG/ML Lipase 102 U/L Triglycerides Level 115 MG/DL Cholesterol Level 173 MG/DL LDL Cholesterol 113 MG/DL HDL Cholesterol 36.6 MG/DL Cholesterol/HDL Ratio 4.72 RATIO Imaging Last Impressions Myocardial Perfusion Scan Nuc Med 11/07/17 0000 Signed Impressions: CONCLUSION: 1. There is a small area of reversibility in the inferolateral wall of the lef t ventricle. This could represent a focal area of ischemia. Normal wall motion. Chest X-Ray 11/07/17 Signed Impressions: CONCLUSION: Negative examination except for questionable airspace disease in the right midd le lobe. Head CT 11/06/17 2348 Signed Impressions: CONCLUSION: 1. Negative CT Head non contrast. Objective Remarks GENERAL: This is a well-nourished, well-developed patient, in no apparent distress. CARDIOVASCULAR: Regular rate and rhythm RESPIRATORY: coarse through out GASTROINTESTINAL: Abdomen soft, non-tender, nondistended. Normal active bowel sounds MUSCULOSKELETAL: Extremities without clubbing, cyanosis, or edema. NEURO: Alert & Oriented x4 to person, place, time, situation. Moves all ext x4 A/P Problem List: (1) Chest pain ICD Codes: R07.9 - Chest pain, unspecified Status: Acute Plan: Patient initially presented to the ER with chest pain. On admission patient c/o a "pressure" across her chest, reports that the chest pain with associated radiate down her left arm, shortness of breath and headache. Patient has a history of hypertension and is supposed to be taking lisinopril - she hasn't taken any of her meds in 4 months as she recently moved to this area from [place] and does not have a pcp. Patient also reports that since this morning, she has been having a frontal pressure to her head. Patient was then evaluated in the chest pain center Myocardial perfusion scan revealed a small area of reversibility in the inferolateral wall of the left ventricle. discussed the case with Dr. Gongora this AM -> plan cardiac catheterization this AM troponin < 0.02 x 3 Consinut aspirin daily Nitorglycerin paste ordered but patient refusing Total cholesterol 173, triglycerides 115, LDL 113, HDL 36.6 Hypertensive urgency On admission patient's BP was 213/112 Patient has a known hx of HTN but has not been taking her lisinopril (unknown dose) x 4 months as she recently moved from [facility] and has not yet established with a PCP Patient also had frontal headache on admission which has resolved CT head conclusion negative CT head noncontrast Patient stated on Metoprolol 25 mg PO BID and Norvasc 5 mg PO daily, will continue Clonidine as need for HTN Cough/SOB Suspect undiagnosed COPD Patient has smoked 1/2 PPD since she was 5 years old, patient endorse SOB for, "a long time, and nonproductive cough x 5 months Patient will need to follow-up with primary care provider for PFTs and diagnosis CXR reviewed and reveals: Negative exam except for questionable airspace disease in the right middle lobe Start Duonebs Q4 hours while awake Patient underwent cardiac catheterization 11/08/[address] Gongora, no interventions needed CORONARY ANGIOGRAPHY: 1. Left main coronary artery is angiographically normal. 2. Left anterior descending coronary has minor luminal irregularities. Several small diagonal branches angiographically normal. 3. Left circumflex gives rise to 2 obtuse marginal branches which have minor luminal irregularities. 4. Right coronary artery is a dominant vessel giving rise to a posterior descending branch and has minor luminal irregularities. CONCLUSIONS: 1. Mild nonobstructive coronary disease. 2. Normal left-sided filling pressure. Patient cleared for DC per server programmer Will DC patient home in stable condition on heart healthy diet with no activity restrictions with new prescriptions including: Metoprolol 25 mg PO every 12 Amlodipine 5 mg PO daily Lipitor 20 mg p.o. nightly Albuterol/ipratropium nebulizers every 6 hours then as needed ProAir rescue hours inhaler every 4-6 as needed shortness of breath/wheezing Aspirin 81 mg daily Discussed results of cardiac catheterization as well as suspected COPD with patient patient verbalized understanding. Encouraged patient to call for healthcare customer service in this tablet with primary care provider for continued follow-up and medication adjustments. (2) Hypertensive urgency ICD Codes: I16.0 - Hypertensive urgency Status: Acute (3) Cough ICD Codes: R05 - Cough Assessment and Plan Patient examined. Assessment and plan formulated with Randi Youssef PA-C. I agree with the above. [facility] minor luminal irregularities mild elevated ldl htn uncontrolled. has been off meds for months suspected copd with wheezing and chronic cough. long tob use hx no local pcp gave pt list of [facility] pcp's to call after dc dc with nebs, bp meds, asa. steroid taper. needs outpt pft with fhcp to establish copd. if no better than should check with pcp about ct chest.discussed with pt. Randi Youssef Nov 08, 2017 08:48 Kumar Rodriguez MD Nov 08, 2017 13:31
[2017-11-08] MEDS ORDERED: guaiFENesin E.R. 600 MG TAB PO SCH (09:00)
[2017-11-08] MEDS ORDERED: ASPIRIN 325 MG TAB PO SCH (09:00)
[2017-11-08 10:01] VITALS: BP 150/80
[2017-11-08] MEDS ORDERED: MIDAZOLAM HCL 2 MG/2 ML VIAL ONE ×3 (10:22→10:52)
[2017-11-08] MEDS ORDERED: HEPARIN-NS/PF INJ 1,000 ML ONE (10:22)
[2017-11-08] MEDS ORDERED: HEPARIN SODIUM - IV 10,000 UNITS/10 ML VIAL ONE (10:22)
[2017-11-08] MEDS ORDERED: BACITRACIN OINT 0.9 GM PKT TOP ONE (11:00)
[2017-11-08] MEDS ORDERED: MISC INFORMATION XX ONE (11:00)
--- NOTE | 2017-11-08 11:12 | MA ---
cc: Chris Gongora MD DATE: 11/08/2017 PROCEDURE PERFORMED: Cardiac catheterization. INDICATION: Abnormal stress test access. PROCEDURES PERFORMED: 1. Fluoroscopy with interpretation. 2. Left heart catheterization. 3. Coronary angiography. METHOD: Risks, benefits and alternatives discussed with the patient. The patient understood and consented for the procedure. DESCRIPTION OF PROCEDURE: The patient was brought into the catheterization lab and placed on the catheterization table. The right wrist was prepped and draped in a sterile fashion. The right wrist was anesthetized with 2% lidocaine. The right radial artery was cannulated and a 6-English 7 cm sheath was placed without difficulty. LEFT HEART CATHETERIZATION: Intraventricular hemodynamics shows 185/3 mmHg. Left ventricular end diastolic pressure 11 mmHg. No significant aortic stenosis by transaortic valvular pullback gradient. CORONARY ANGIOGRAPHY: 1. Left main coronary artery is angiographically normal. 2. Left anterior descending coronary has minor luminal irregularities. Several small diagonal branches angiographically normal. 3. Left circumflex gives rise to 2 obtuse marginal branches which have minor luminal irregularities. 4. Right coronary artery is a dominant vessel giving rise to a posterior descending branch and has minor luminal irregularities. CONCLUSIONS: 1. Mild nonobstructive coronary disease. 2. Normal left-sided filling pressure. PLAN: Chest pain appears not to be of noncardiac origin. Continue guideline directed medical therapy. Followup with primary care physician. Chris Gongora MD NATI/DL , 10:59 AM , 11:11 AM
--- NOTE | 2017-11-08 11:12 | CATHPROC ---
[facility] HIS Report Study Information Study Number Admission Scheduled Start Study Start [id number] Nov 07 2017 1:36AM 11/08/2017 Nov 08 2017 10:07AM [place] [facility] Cardiac Catheterization Admit Source Facility Department Emergency department [facility] - Manager Mass Physician and Clinical Staff Initial Chris Harrington Traffic Counter Jordi Najera RN Recorder Jinny Oliveros,RT(R) Scrub Becca Paris ,RT(R) Procedures Performed Procedure Location (Site) Vessel Name Coronary Angiograms LCA Left Coronary Coronary Angiograms RCA Right Coronary L Heart Cath Equipment Time Education Intern Description Size Mfg Part Number Used/Scraped TRANSDUCER, TRUWAVE [id number] 10:22 [employer] SALINAS * Used W/STOCKCOCK *[id number] *[id number] 10:22 [employer] BLANKET,WARM AIR CCL * Used *[id number] 10:22 [employer] PACK, CCL CUSTOM * Used *[id number] 10:22 [employer] SUPPORT, ARTERIAL ADULT 04939 *[id number] Used [id number] 10:22 [employer] PACER PEN, SKIN DUAL W/ RULER * Used *[id number] 10:48 [employer]os JL 3.5 DXTERITY CATHETER FR 5 Used *[id number] BAND, RADIAL COMPRESSION TR [id number] 10:53 [employer] 24CM Used SHORT 24 *[id number] SHEATH, FR6 RADIAL PRELUDE 10:22 [employer] FR 6 [id number] Used EASE 11CM [id number] 10:22 [employer] WIRE, EXCHANGE 260CM 3MMJ 260CM Used *[id number] 10:22 NAMIC MANIFOLD, 4 PORT * Used *[id number] 10:22 [employer]ED OMNIPAQUE, 350 MG, 150ML 150ML [id number] Used History: Allergies Allergy Reaction No Known Allergies History: Risk Factors Family History of Hypertension Dyslipidemia Previous KS Previous Heart Failure Premature CAD Yes No Yes Yes No Prior Valve Prior PCI Prior CABG Surgery No No No Cerebrovascular Peripheral Artery Chronic Lung On Dialysis Diabetes Disease Disease Disease No No Yes Yes No History: Symptoms/Diagnosis Selection Items Chest pain SOB History: Stress Tests Stress or Imaging Studies Performed Yes Standard Exercise Stress Test No Stress Echo No Stress Test SPECT Stress Test SPECT Result Stress Test SPECT Ischemia Risk/Extent Yes Positive Intermediate Stress Test CMR No Cardiac CTA Coronary Calcium Score No No History: Other Current Smoker Method Packs a Day Years Used Pack Years Yes Cigarettes 1 40 40 Labs Hgb (g/dl) Hct (%) WBC (l/cumm) Platelets (thousands) 11.60-17.00 35.00-51.00 4.00-11.00 150.00-450.00 16.0 48 4.9 277 Glucose (mg/dl) BUN (mg/dl) Creatinine (mg/dl) BUN:Creatinine (1:x) 74.00-106.00 7.00-18.00 0.50-1.30 10.00-20.00 83 6 0.7 8.6 Na (meq/l) K (meq/l) 136.00-145.00 3.50-5.10 141 3.6 INR (PTT:PT) 0.90-1.10 1 Troponin I (ng/ml) CPK (u/l) 0.02-0.05 26.00-308.00 0.02 58 Medication Medication Total Dose (Bolus/Oral) Medication Total Dosage/Unit 1% XYLOCAINE 5 mL FENTANYL 200 mcg HEPARIN 3000 units NTG (IC) 500 mcg VERSED 6 mg Medications (Bolus/Oral) Medication Time Given Dosage/Unit Administered By Reason VERSED 11/08/2017 10:39:33 AM 1 mg Jordi Najera 1 mg VERSED given in lab by Jordi Najera RN in Left Hand via Peripheral IV. Ordered by Ariadna Gongora. FENTANYL 11/08/2017 10:40:04 AM 50 mcg Jordi Najera 50 mcg FENTANYL given in lab by Jordi Najera RN in Left Hand via Peripheral IV. Ordered by Sheela Gongora. 1% XYLOCAINE 11/08/2017 10:42:53 AM 5 mL Chris Gongora 5 mL 1% XYLOCAINE given in lab by Chris Gongora in Right Radial via Subcutaneous. NTG (IC) 11/08/2017 10:43:50 AM 200 mcg Chris Gongora 200 mcg NTG (IC) given in lab by Chris Gongora in Right Radial via Intra-arterial. HEPARIN 11/08/2017 10:44:07 AM 3000 units Jordi Najera 3000 units HEPARIN given in lab by Jordi Najera RN in Left Hand via Peripheral IV. Ordered by Chris Gongora. VERSED 11/08/2017 10:45:01 AM 1 mg Jordi Najera 1 mg VERSED given in lab by Jordi Najera RN in Left Hand via Peripheral IV. Ordered by Ariadna Gongora en. FENTANYL 11/08/2017 10:47:07 AM 25 mcg Jordi Najera 25 mcg FENTANYL given in lab by Jordi Najera RN in Left Hand via Peripheral IV. Ordered by Sheela Gongora. NTG (IC) 11/08/2017 10:48:59 AM 300 mcg Chris Gongora 300 mcg NTG (IC) given in lab by Chris Gongora in Right Radial via Intra-arterial. VERSED 11/08/2017 10:51:50 AM 1 mg Jordi Najera 1 mg VERSED given in lab by Jordi Najera RN in Left Hand via Peripheral IV. Ordered by Ariadna Gognora en. FENTANYL 11/08/2017 10:52:15 AM 25 mcg Jordi Najera 25 mcg FENTANYL given in lab by Jordi Najera RN in Left Hand via Peripheral IV. Ordered by Sheela Gongora. VERSED 11/08/2017 10:57:40 AM 3 mg Jordi Najera 3 mg VERSED given in lab by Jordi Najera RN in Left Hand via Peripheral IV. Ordered by Ariadna Gongora en. FENTANYL 11/08/2017 10:58:50 AM 100 mcg Jordi Najera 100 mcg FENTANYL given in lab by Jordi Najera RN in Left Hand via Peripheral IV. Ordered by Chris Gongora. Medication (Drip) Medication Time Given Dosage/Unit Concentration/Unit Diluent (ml) Solution IV Solutions 11/08/2017 10:22:38 AM 50 mL (IV) NaCl .9 IV Solutions given in lab by Jordi Najera RN in Left Hand via Peripheral IV. Pump/Drip Flow using N aCl .9. Initial Case Assessment Cardiovascular HR Rhythm NIBP Chest Pain 64 sr 181/113 0 Edema Present Skin color Skin None Normal Warm Dry Circulatory - Right Pulses Dorsalis Pedis Femoral Radial 2 2 2 Scale (0,1,2,3,4,d) Circulatory - Left Pulses Dorsalis Pedis Femoral Radial 1 2 Scale (0,1,2,3,4,d) Neurological State Oriented to time-place- Alert Moves all extremities person Respiration - General Respiration Rate SpO2 (%) O2 (lpm) (B/min) 19 94 3 Chronological Log Time Study Chronological Log 10:15:50 Patient arrived via Bed. 10:22:09 Patient Name, D.O.B, / Armband Verified By R.N. 10:22:09 Consent signed by the physician and the patient and verified by the Manager Mass staff. 10:22:10 Pre-op and post- op instructions given; patient acknowledges understanding of instructions. 10:22:11 Verbal Stimulation=2 Physical Stimulation=2 Airway=2 Respiration=1 TOTAL=7. (0=absent, 1=li mited, 2=present) 10:22:12 Presedation assessment performed by Manager Mass RN. 10:22:13 Allens test performed on the right radial and ulnar artery. 10:22:22 Patient has been NPO for More than 6Hrs. 10:22:23 Skin Breakdown- 10:22:23 Patient Warmer Placed on the Table. 10:22:25 Markie Prominences Protected 10:22:31 A # 20 IV was noted in the Hand (left). Grade = 0 10:22:38 IV Solutions given in lab by Jordi Najera RN in Left Hand via Peripheral IV. Pump/Drip Fl ow using NaCl .9. 10:22:46 History and physical on the chart or being dictated. Assessment: Initial Case, HR=64 BPM, Rhythm=sr, VYYE=402/113 mmhg, Chest Pain=0, Edema=None, Co yasmine=Normal, Skin = Warm, Dry Right Pulses: Mohamud Ped=2, Femoral=2, Radial=2 10:22:47 Left Pulses: Mohamud Ped=1, Femoral=2 Neurological: State=Alert, Ox3, DUGAN Respiration: Resp=19 B/min, SpO2=94 %, O2=3 lpm Vitals capture started with the following parameters, Patient=Adult, Interval=5 min, Initial Pr debffv=481 mmHg, 10:22:55 Deflation Rate=5 mmHg, Cuff placed on Left Arm 10:24:13 HR=62 bpm, NBOW=449/113 mmhg, SpO2=93.0 %, Resp=12 B/min, Pain=0, Dianelys=9, Chery=2 10:24:45 Reference ECG taken 10:26:30 Right Radial and right groin prepped with 2% chlorhexidine, and draped after a 3 min. waiti ng time. 10:28:35 HR=60 bpm, FBAF=489/103 mmhg, SpO2=95.0 %, Resp=18 B/min, Pain=0, Dianelys=9, Chery=2 10:32:06 MD paged 10:33:37 HR=60 bpm, YXYQ=694/104 mmhg, SpO2=96.0 %, Resp=12 B/min, Pain=0, Dianelys=9, Chery=2 10:34:38 MD responded 10:36:11 Pressure channel 1 zeroed. 10:36:51 MD arrived. 10:39:21 HR=55 bpm, CZXM=278/107 mmhg, SpO2=95.0 %, Resp=12 B/min, Pain=0, Dianelys=9, Chery=2 10:39:33 1 mg VERSED given in lab by Jordi Najera RN in Left Hand via Peripheral IV. Ordered by Chris Perea. 10:40:04 50 mcg FENTANYL given in lab by Jordi Najera RN in Left Hand via Peripheral IV. Ordered b y Chris Gongora. Time Out. Correct patient, correct procedure, correct physician, labs, allergies, and equipment verified with laborer golf course 10:42:48 team present. Fire risk assesment completed (see hard stop sheet for coding). Time Out Conc urred by and individual staff in procedure. 10:42:52 Case Start 10:42:53 5 mL 1% XYLOCAINE given in lab by Chris Gongora in Right Radial via Subcutaneous. 10:43:30 Access site was Right Radial Artery. A SHEATH, FR6 RADIAL PRELUDE EASE 11CM FR 6 was advanced into the Radial (right) using the Perc utaneous 10:43:38 technique. 10:43:41 HR=79 bpm, PAFW=279/88 mmhg, SpO2=95.0 %, Resp=20 B/min 10:43:50 200 mcg NTG (IC) given in lab by Chris Gongora in Right Radial via Intra-arterial. 10:44:07 3000 units HEPARIN given in lab by Jordi Najera RN in Left Hand via Peripheral IV. Ordere d by Chris Gongora. 10:45:01 1 mg VERSED given in lab by Jordi Najera RN in Left Hand via Peripheral IV. Ordered by Chris Perea. A JR 5.0 INFINITI CATHETER FR 5 was advanced over a wire. OMNIPAQUE, 350 MG, 150ML 150ML was us ed for 10:45:10 injections. Recorded Pressure: LV, HR=71, Condition=Condition 1 10:45:25 (Left Ventricle) LV 185/3/11 Recorded Pressure: Ao, HR=76, Condition=Condition 1 10:45:46 (Aorta) Ao 188/112/143 10:47:07 25 mcg FENTANYL given in lab by Jordi Najera RN in Left Hand via Peripheral IV. Ordered Chris Biggs. 10:47:28 The RCA was injected and visualized at various angles. OMNIPAQUE, 350 MG, 150ML 150ML used . After removing the current catheter a JL 3.5 DXTERITY CATHETER FR 5 was advanced over a WIRE, E XCHANGE 260CM 10:47:53 3MMJ 260CM. 10:48:59 300 mcg NTG (IC) given in lab by Chris Gongora in Right Radial via Intra-arterial. 10:49:15 HR=77 bpm, DMOR=693/113 mmhg, SpO2=91.0 %, Resp=15 B/min, Pain=0, Dianelys=9, Chery=2 10:50:21 The LCA was injected and visualized at various angles. OMNIPAQUE, 350 MG, 150ML 150ML used . 10:51:50 1 mg VERSED given in lab by Jordi Najera RN in Left Hand via Peripheral IV. Ordered by Chris Perea. 10:52:13 Catheter was removed 10:52:15 25 mcg FENTANYL given in lab by Jordi Najera RN in Left Hand via Peripheral IV. Ordered Chris Biggs. 10:52:30 Case End (Physician broke scrub) 10:53:35 HR=83 bpm, RFMS=513/97 mmhg, SpO2=91.0 %, Resp=14 B/min, Pain=0, Dianelys=9, Chery=2 Radial Compression Device Used. 11 mLs of air placed in BAND, RADIAL COMPRESSION TR SHORT 24 24 CM. Affected 10:56:08 hand 91 % O2 saturation. 10:56:15 No case complications noted. 10:56:22 Holding Area notified. 10:56:33 A Left Heart Cath was performed. 10:57:40 3 mg VERSED given in lab by Burfield, Jordi, RN in Left Hand via Peripheral IV. Ordered by Chris Lynn. 10:58:30 HR=81 bpm, UTEF=569/104 mmhg, SpO2=90 %, Resp=14 B/min, Pain=0, Dianelys=9, Chery=2 10:58:50 100 mcg FENTANYL given in lab by Jordi Najera RN in Left Hand via Peripheral IV. Ordered by Chris Gongora. 11:02:49 O2 raised to 6L 11:06:36 Patient moved to bed End Study - Contrast Media Used In Study Contrast Total Opened (mL) Total Used (mL) Total Wasted (mL) Omnipaque 30 30 0 End Study - Maximum Contrast Load Max Contrast Load (mL) 535.7 End Study - Radiation Exposure Fluoro Time (minutes) 0.7 End Study - Patient Disposition Complications Transferred To Interventional Outcome No Telemetry Bed No attempt made
[2017-11-08] MEDS: cloNIDine HCL 0.1 MG TAB PO PRN ×2 (12:12→12:17)
[2017-11-08] MEDS ORDERED: NEBULIZER1 MI1 (13:10)
[2017-11-08] MEDS ORDERED: METO25TA3 PO (13:10)
[2017-11-08] MEDS ORDERED: ALBUAER3 INH (13:10)
[2017-11-08] MEDS ORDERED: AMLO5 PO (13:10)
[2017-11-08] MEDS ORDERED: LIPI20TA PO (13:10)
[2017-11-08] MEDS ORDERED: ALBU0.08 NEB (13:10)
[2017-11-08] MEDS ORDERED: IPRA0.02 NEB (13:10)
[2017-11-08] MEDS ORDERED: ASPI81TA23 PO (13:10)
[2017-11-08] MEDS ORDERED: NEBUKIT5 (13:10)
[2017-11-08] MEDS ORDERED: PRED20 PO (13:10)
--- NOTE | 2017-11-08 13:19 | HHI.DCPOC ---
Discharge Care Plan Diagnosis: (1) Chest pain (2) Hypertensive urgency (3) Cough Goals to Promote Your Health * To prevent worsening of your condition and complications * To maintain your health at the optimal level Directions to Meet Your Goals Take your medications as prescribed Follow your dietary instruction Follow activity as directed Keep your appointments as scheduled Take your immunizations and boosters as scheduled If your symptoms worsen call your PCP, if no PCP go to Urgent Care Center or Emergency Room Smoking is Dangerous to Your Health. Avoid second hand smoke Call the 24-hour hour crisis hotline for domestic abuse at Randi Youssef Nov 08, 2017 13:19
--- NOTE | 2017-11-08 14:22 | EKG ---
Date Performed: 11/08/2017 Time Performed: 09:29:00 PTAGE: 47 years EKG: SINUS BRADYCARDIA INCOMPLETE RIGHT BUNDLE BRANCH BLOCK BORDERLINE ECG Compared to prior mariel ctrocardiogram, Nonspecific T wave changes no longer present. . PREVIOUS TRACING : 11/07/2017 04.42 DOCTOR: Hollis Goyal Interpretating Date/Time 11/08/2017 14:21:03
== END 2017-11-08 14:03 | disposition home or self-care (01) ==
LOC: NEPE 22:59 → NEDA 11-07 01:36 → NEPFCDU 11-07 02:16 → HCIS 11-08 10:36
PROVIDERS: ADMIT Hospitalist; ATTEND Hospitalist
DX: R07.89 Other chest pain (principal); R06.02 Shortness of breath; I10 Essential (primary) hypertension; I16.0 Hypertensive urgency; R94.39 Abnormal result of other cardiovascular function study; I45.10 Unspecified right bundle-branch block; R00.1 Bradycardia, unspecified; R51 Headache; G35 Multiple sclerosis; M79.7 Fibromyalgia; Q05.9 Spina bifida, unspecified; F12.90 Cannabis use, unspecified, uncomplicated; F17.210 Nicotine dependence, cigarettes, uncomplicated; M19.90 Unspecified osteoarthritis, unspecified site; Z79.899 Other long term (current) drug therapy; Z79.82 Long term (current) use of aspirin
CPT/HCPCS: 70450; 71045; 78452; 80053; 80061; 82550; 83690; 83735; 83880; 84484; 84702; 85025; 85379; 85610; 85730; 93005; 93017; 93458; 94640; 94664; 96374; 96375; 99152; 99285; A9502; C1769; C1893; G0378; J0780; J1644; J2250; J2785; J3010; Q9967